=== PATIENT | female | born 1960 | race Caucasian/White ===

== ENCOUNTER 2016-12-27 02:09 | Emergency (ER) | payer MEDICAID ==
[2016-12-27] MEDS ORDERED: NS 1,000 ML IV ONE (02:14)
[2016-12-27 02:15] VITALS: TEMP 97.3
[2016-12-27 03:00] LABS: ANION GAP 20 mEq/L (8-16); CALCIUM 9.2 mg/dL (8.5-10.4); CARBON DIOXIDE 19 mEq/l (22-31); CHLORIDE 109 mEq/L (97-110); CREATININE 0.5 mg/dL (0.6-1.0); GLOMERULAR FILTRATION RATE > 60; GLUCOSE 82 mg/dL (70-100); SODIUM 148 mEq/L (134-144)
[2016-12-27 03:11] LABS: ETHANOL SERUM 387 mg/dL (0-10)
--- NOTE | 2016-12-27 03:40 | EDPHY ---
H & P Stated Complaint: Poss seizure/ETOH HPI/ROS: HPI CHIEF COMPLAINT: Alcohol Intoxication HISTORY OF PRESENT ILLNESS: This patient 56-year-old female she presents emergency room by EMS for being intoxicated alcohol. She was unable to ambulate. No trauma reported. She states that she drank large amount of alcohol this evening. Past Medical History: Alcoholism Past Surgical History: No recent surgery Social History: Daily alcohol use, homeless Family History: Noncontributory ROS REVIEW OF SYSTEMS: A comprehensive 10 point review of systems is otherwise negative aside from elements mentioned in the history of present illness. Exam Constitutional Intoxicated, triage nursing summary reviewed, vital signs reviewed, Sleepy, smells of alcohol Eyes normal conjunctivae and sclera, horizontal beating nystagmus consistent acute alcohol intoxication, otherwise pupils equal and react to light HENT normal inspection, atraumatic, moist mucus membranes, no epistaxis, neck supple/ no meningismus, no raccoon eyes. Respiratory clear to auscultation bilaterally, normal breath sounds, no respiratory distress, no wheezing. Cardiovascular rate normal, regular rhythm, no murmur, no edema, distal pulses normal. Gastrointestinal soft, non-tender, no rebound, no guarding, normal bowel sounds, no distension, no pulsatile mass. Genitourinary no CVA tenderness. Musculoskeletal no midline vertebral tenderness, full range of motion, no calf swelling, no tenderness of extremities, no meningismus, good pulses, neurovascularly intact. Skin pink, warm, & dry, no rash, skin atraumatic. Neurologic sleepy, intoxicated with alcohol,, alert and oriented x 3, AAOx3, moves all 4 extremities equally, motor intact, sensory intact, CN II-XII intact , , normal vision, normal speech. Psychiatric normal mood/affect. Heme/Lymph/Immune no lymphadenopathy. Differential Diagnosis: Includes but is not limited to in a particular order acute alcohol intoxication, alcohol abuse, dehydration, electrolyte abnormality , nausea vomiting from acute alcohol intoxication Medical Decision Making: Plan for this patient IV establishment IV fluid bolus , check electrolytes and alcohol level. Monitor for sobriety. Re-evaluation: [id number]: Re-evaluation this time patient is much more sober. Ambulated well to the bathroom without difficulty. Stable gait. Swelling to go to detox. Librium take-home pack. Source: Patient - Personal History LMP (Females 10-55): Unknown Current Tetanus/Diphtheria Vaccine: Unsure Current Tetanus Diphtheria and Acellular Pertussis (TDAP): Unsure - Medical/Surgical History Hx Asthma: No Hx Chronic Respiratory Disease: No Hx Diabetes: Yes Hx Cardiac Disease: No Hx Renal Disease: No Hx Cirrhosis: No Hx Alcoholism: Yes Hx HIV/AIDS: No Hx Splenectomy or Spleen Trauma: No Other PMH: seizures - Social History Smoking Status: Current some day smoker Constitutional: Initial Vital Signs Temperature (C) 36.3 C 12/27/16 02:13 Heart Rate 59 L 12/27/16 02:13 Respiratory Rate 14 12/27/16 02:13 Blood Pressure 112/78 12/27/16 02:13 O2 Sat (%) 94 12/27/16 02:13 O2 Delivery Mode Room Air Allergies/Adverse Reactions: No Known Allergies Allergy (Unverified 12/27/16 02:44) Home Medications: Medication Instructions Recorded [facility] 12/27/16 Medical Decision Making - Data Points Laboratory Results: Laboratory Results 12/27/16 02:40 12/27/16 02:40 Sodium 148 mEq/L H mEq/L (134-144) Potassium 5.0 mEq/L mEq/L (3.5-5.2) Chloride 109 mEq/L mEq/L (97-110) Carbon Dioxide 19 mEq/l L mEq/l (22-31) Anion Gap 20 mEq/L H mEq/L (8-16) BUN 9 mg/dL mg/dL (7-23) Creatinine 0.5 mg/dL L mg/dL (0.6-1.0) Estimated GFR > 60 Glucose 82 mg/dL mg/dL (70-100) Calcium 9.2 mg/dL mg/dL (8.5-10.4) Ethyl Alcohol 387 mg/dL H mg/dL (0-10) Medications Given: Discontinued Medications Sodium Chloride (Ns) 1,000 mls @ 0 mls/hr IV EDNOW ONE; Wide Open PRN Reason: Protocol Stop: 12/27/16 02:15 Last Admin: 12/27/16 02:52 Dose: 1,000 mls Departure - Departure Disposition: Home, Routine, Self-Care Clinical Impression: Alcoholic intoxication Qualifiers: Complication of substance-induced condition: uncomplicated Qualified Code(s): F10.920 - Alcohol use, unspecified with intoxication, uncomplicated Condition: Fair Instructions: Alcohol Intoxication (ED), Abuse of Alcohol (ED) Referrals: NONE *PRIMARY CARE P,. [Primary Care Provider] - As per Instructions
[2016-12-27 04:03] VITALS: RESP 15
[2016-12-27] MEDS ORDERED: CHLORDIAZEPOXIDE 25MG PREPK#6 BTL TAKEHOME ONE (06:42)
[2016-12-27 06:43] VITALS: BP 107/83; PULSE 83; O2SAT 97
== END 2016-12-27 06:58 | disposition home or self-care (01) ==
LOC: EDUNIT#
DX: F10.920 Alcohol use, unspecified with intoxication, uncomplicated (principal); E11.9 Type 2 diabetes mellitus without complications; F17.200 Nicotine dependence, unspecified, uncomplicated; E86.9 Volume depletion, unspecified
CPT/HCPCS: G0480

== ENCOUNTER 2016-12-28 09:16 | Emergency (ER) | payer MEDICAID ==
--- NOTE | 2016-12-28 09:16 | EDPHY ---
H & P Constitutional: Initial Vital Signs Temperature (C) 37.2 C 12/28/16 09:16 Heart Rate 85 12/28/16 09:16 Respiratory Rate 16 12/28/16 09:16 Blood Pressure 145/88 H 12/28/16 09:16 O2 Sat (%) 92 12/28/16 09:16 O2 Delivery Mode Room Air Allergies/Adverse Reactions: No Known Allergies Allergy (Unverified 12/27/16 02:44) Home Medications: Medication Instructions Recorded NK [No Known Home Meds] 12/28/16 Medical Decision Making ED Course/Re-evaluation: CHIEF COMPLAINT: Withdrawal seizure HISTORY OF PRESENT ILLNESS: This patient is a 56 year old female arriving from the [facility] following a witnessed alcohol withdrawal seizure this morning. She was discharged yesterday from this emergency department to the [facility] with a Librium prescription following evaluation for alcohol intoxication. She is not sure whether she was given Librium last night or this morning. She denies any injuries secondary to her seizure. She currently has no complaints. REVIEW OF SYSTEMS: A 10 point review of systems was performed and is negative with the exception of the elements mentioned in the history of present illness. PHYSICAL EXAM: HR, BP, O2 Sat, RR. Temp noted General Appearance: Alert, well hydrated, appropriate, and non-toxic appearing. Head: Atraumatic without scalp tenderness or obvious injury Eyes: Pupils equal, round, reactive to light and accommodation, EOMI, no trauma , no injection. Ears: Clear bilaterally, no perforation, normal landmarks Nose: Atraumatic, no rhinorrhea, clear. Throat: No tongue lacerations. There is no erythema or exudates, no lesions, normal tonsils, mucus membranes moist. Neck: Supple, nontender, no lymphadenopathy. Respiratory: No retractions, no distress, no wheezes, and no accessory muscle use. Lungs are clear to auscultation bilaterally. Cardiovascular: Regular rate and rhythm. Good capillary refill all extremities. Gastrointestinal: Abdomen is soft, nontender, non-distended, no masses, no rebound, no guarding, no peritoneal signs. Musculoskeletal: Normal active ROM of all extremities, atraumatic. Neurological: Alert, appropriate, and interactive. The patient has normal DTRs and non-focal cranial nerves, motor, sensory, and cerebellar exam. Skin: No rashes, good turgor, no nodules on palpation. Past medical history: Seizures Past surgical history: Noncontributory Family history: Noncontributory Social history: Current smoker. DIFFERENTIAL DIAGNOSIS: The differential diagnosis for the patient's seizure included but was not limited to electrolyte abnormality, alcohol withdrawal, medication noncompliance , head injury, [employer] structural abnormality, and break through seizure. MEDICAL DECISION MAKIN56 year old female presents following an alcohol withdrawal seizure earlier today at the addiction recovery center. She denies any trauma or current complaints. No evidence of injury on physical exam. Her symptoms are currently resolved. Plan to speak with the [facility] to determine if Librium was administered to determine correct dosing. 9:27 Spoke with [facility] staff. Librium was not administered because she did not score high enough on the CIWA scale on evaluation at the [facility]. Discussed discharge with the patient. She is currently more than 24 hours out from her initial presentation when intoxicated, and she is of sound mind. She does not wish to return to [facility], and is comfortable being discharged home. - Data Points Medications Given: Discontinued Medications Lorazepam (Ativan Injection) 1 mg IVP EDNOW ONE Stop: 12/28/16 09:24 Last Admin: 12/28/16 09:33 Dose: 1 mg Departure - Departure Disposition: Home, Routine, Self-Care Clinical Impression: Alcohol withdrawal seizure Qualifiers: Complication of substance-induced condition: uncomplicated Qualified Code(s): F10.230 - Alcohol dependence with withdrawal, uncomplicated Condition: Good Instructions: Alcohol Withdrawal (ED) Additional Instructions: Follow up with your primary care physician for continued concerns. Return to the Emergency Department for recurrent seizure or other worsening of condition. Referrals: NONE *PRIMARY CARE P,. [Primary Care Provider] - As per Instructions Alexander Samano MD [[facility] Primary Care Provider] - As per Instructions [facility],. [Clinic] - As per Instructions Report Scribed for: Alvaro Sol Report Scribed by: Mariaelena Storm Date of Report: 12/28/16 Time of Report: 09:58
[2016-12-28] MEDS ORDERED: LORazepam 2 MG/ML INJ IVP ONE (09:23)
[2016-12-28 09:30] VITALS: BP 145/88; PULSE 85; RESP 16; TEMP 99; O2SAT 92
== END 2016-12-28 10:09 | disposition home or self-care (01) ==
LOC: EDUNIT#
DX: F10.230 Alcohol dependence with withdrawal, uncomplicated (principal); F17.200 Nicotine dependence, unspecified, uncomplicated
CPT/HCPCS: 96374; J2060

== ENCOUNTER 2016-12-29 19:03 | Emergency (ER) | payer MEDICAID ==
[2016-12-29 19:12] VITALS: BP 96/75; PULSE 98; RESP 16; TEMP 98.8; O2SAT 94
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
== END 2016-12-29 19:44 ==
LOC: EDUNIT# → EEVIPCON 19:03
DX: M54.5 Low back pain (principal); F17.200 Nicotine dependence, unspecified, uncomplicated